=== PATIENT | female | born 1945 | race Caucasian/White ===

== ENCOUNTER 2020-04-28 10:18 | Outpatient (REF) | payer MEDICARE, SELFPAY ==
--- NOTE | 2020-04-28 | US_ITS ---
EXAMINATION: US EXTRACRANIAL CAROTID DUPLEX, BILATERAL CLINICAL INFORMATION: Bilateral carotid artery stenosis. COMPARISON: Carotid ultrasound on March 20, 2019 TECHNIQUE: Real-time ultrasound and Doppler techniques (integrating B-mode 2-D vascular images, Doppler spectral analysis and color-flow Doppler imaging) were utilized to interrogate the extracranial carotid arteries, the vertebral arteries and proximal subclavian arteries bilaterally. The degree of stenosis is determined by criteria similar to NASCET. FINDINGS: Right Side: 1. There is moderate atherosclerotic plaque seen in the bifurcation/proximal ICA region. 2. The common carotid artery PSV proximally is 80.3 cm/s and distally 80.9 cm/s. 3. The proximal internal carotid artery velocities are 212 cm/s systolic and 30.1 cm/s diastolic. 4. The proximal external carotid artery PSV is 1:30 cm/s. 5. The vertebral artery shows antegrade flow. 6. The subclavian artery waveforms are normal. Left Side: 1. There is moderate atherosclerotic plaque seen in the bifurcation/proximal ICA region. 2. The common carotid artery PSV proximally is 99.7 cm/s and distally 71.1 cm/s. 3. The proximal internal carotid artery velocities are 163 cm/s systolic and 36.3 cm/s diastolic. 4. The proximal external carotid artery PSV is 160 cm/s. 5. The vertebral artery shows antegrade flow. 6. The subclavian artery waveforms are normal. US/US carotid duplex BI IMPRESSION: 1. RIGHT: Moderate, hemodynamically significant stenosis of the proximal right internal carotid artery corresponding to a 50-79% stenosis by velocity criteria. 2. LEFT: Moderate, hemodynamically significant stenosis of the proximal left internal carotid artery corresponding to a 50-79% stenosis by velocity criteria.
== END 2020-04-28 10:19 | disposition home or self-care (01) ==
LOC: HO.HMGCX 10:18
PROVIDERS: PCP Nurse Practitioner Family; Visit Provider Psychiatry & Neurology Neurology
DX: I65.23 Occlusion and stenosis of bilateral carotid arteries (principal)
CPT/HCPCS: 93880

== ENCOUNTER 2020-06-06 09:16 | Day surgery (SDC) | payer MEDICARE, SELFPAY ==
--- NOTE | 2020-05-24 13:27 | MHC.SHP ---
Pre-Procedural Eval Section A The patient is an INPATIENT: No The History & Physical has been completed within 30 days and I have reviewed it.: Yes Section B Chief Complaint: Cataract Right Eye Allergies: Allergies Allergy/AdvReac Type Severity Reaction Status Date / Time No Known Allergies Allergy Unverified 03/24/20 15:35 Plan Diagnosis/Plan: Unchanged Patient has been examined and remains a candidate for the planned procedure
--- NOTE | 2020-05-30 14:35 | P.CONAN_ITS ---
Documented by User: Ana Brannon 06/01/20 08:32 HPI - Anesthesia Eval Consult details Narrative: 74yo F for Cataract Extraction IOL Insertion No prev cataract PMFSH Past Medical History Medical History Arthritis Cancer Elevated cholesterol Hiatal hernia HTN (hypertension) TIA (transient ischemic attack) Surgical History Surgical History H/O colonoscopy Hx of appendectomy Hx of knee surgery Hx of tonsillectomy Hx of tracheostomy Social History Social History Smoking Status: Never smoker Use of substances other than those prescribed or required for medical reasons: No Have you been hit, kicked, punched, or otherwise hurt by someone within the past year? If so, by whom?: No Advance Directives Information Provided: No Recently lost weight without trying: No Meds Allergies Allergy/AdvReac Type Severity Reaction Status Date / Time No Known Allergies Allergy Verified 05/31/20 10:27 Home Medications Medication Instructions Recorded Confirmed Type aspirin [Aspirin Low-Strength] 81 mg PO DAILY 05/31/20 05/31/20 History coenzyme Q10 [CoQ-10] 100 mg PO DAILY 05/31/20 05/31/20 History lisinopril 1.5 tab PO DAILY 05/31/20 05/31/20 History mesalamine 4 tab PO DAILY 05/31/20 05/31/20 History multivitamin 1 tab PO DAILY 05/31/20 05/31/20 History rosuvastatin 1 tab PO DAILY 05/31/20 05/31/20 History vit C,H-Ke-stdxg-lutein-zeaxan 1 tab PO DAILY 05/31/20 05/31/20 History [PreserVision AREDS-2] Exam Exam Date and Time: May 30, 2020 2605 Assessment and Plan Assessment Anesthesia Assessment: Chart Reviewed Documented by User: Opal Ayala 06/06/20 10:07 FORMERLY [facility], [facility] Past Medical History Medical History Arthritis Cancer Elevated cholesterol Hiatal hernia HTN (hypertension) TIA (transient ischemic attack) Surgical History Surgical History H/O colonoscopy Hx of appendectomy Hx of knee surgery Hx of tonsillectomy Hx of tracheostomy Social History Social History Smoking Status: Never smoker Use of substances other than those prescribed or required for medical reasons: No Have you been hit, kicked, punched, or otherwise hurt by someone within the past year? If so, by whom?: No Advance Directives Information Provided: No Recently lost weight without trying: No Meds Allergies Allergy/AdvReac Type Severity Reaction Status Date / Time No Known Allergies Allergy Verified 05/31/20 10:27 Home Medications Medication Instructions Recorded Confirmed Type aspirin [Aspirin Low-Strength] 81 mg PO DAILY 05/31/20 05/31/20 History coenzyme Q10 [CoQ-10] 100 mg PO DAILY 05/31/20 05/31/20 History lisinopril 1.5 tab PO DAILY 05/31/20 05/31/20 History mesalamine 4 tab PO DAILY 05/31/20 05/31/20 History multivitamin 1 tab PO DAILY 05/31/20 05/31/20 History rosuvastatin 1 tab PO DAILY 05/31/20 05/31/20 History vit C,V-Ww-lughe-lutein-zeaxan 1 tab PO DAILY 05/31/20 05/31/20 History [PreserVision AREDS-2] Exam Airway Mallampati Class: II (Caps front top and bottom) TM Dist: >3cm Heart: RRR Lungs: CTA BL Assessment and Plan Assessment Anesthesia Assessment: Anesthesia Plan Discussed Final Anesthetic Review NPO: Yes ASA Class: II Final Preanesthetic Review: Meds/Allgs Chart Reviewed and Consent Obtained/Revie wed Patient Risk: Low Procedure Risk: Low Anesthetic Plan Anesthetic Plan: MAC: Disposition: Standard PACU
[2020-05-31 10:20] VITALS: BMI 30.8
[2020-06-06 10:35] VITALS: BP 147/72; PULSE 93; RESP 16; TEMP 36.1; O2SAT 97
[2020-06-06] MEDS: Lactated Ringers 500 ML 50 ML IV (10:35)
--- NOTE | 2020-06-06 11:42 | HO.PNOPHT ---
Ophthalmology Procedure Procedure Date of Service: 06/06/20 Ophthalmology Viscoelastic: Healon Duet Dual Pack Pro Ophthalmology Lenses: TECNIS [id number] (20.5) Procedure Notes: PREOPERATIVE DIAGNOSIS: Decreased visual acuity right eye secondary to cataract POSTOPERATIVE DIAGNOSIS: Same PROCEDURE: Right cataract extraction with intraocular lens insertion SURGEON: Gianni White M.D. ANESTHESIA: Topical/MAC ESTIMATED BLOOD LOSS: None COMPLICATIONS: None After obtaining informed consent, the patient was brought to the operating room suite and placed in the supine position. After adequate sedation per anesthesia, topical drops of Tetracaine were given to the right eye. The eye was then prepped and draped in the usual sterile fashion. The operating room microscope was then positioned over the operative eye and a lid speculum placed. A paracentesis was created. Viscoelastic was then instilled into the anterior chamber. A three plane incision was then created temporally, utilizing a 2.85 mm keratome. Capsulotomy forceps were then utilized to create a circular tear capsulotomy. Hydrodissection and hydrodelineation were carried out until adequate mobilization of the nucleus occurred. Phacoemulsification was then utilized to remove the dense central nucleus followed by removal of the cortical material utilizing the automated aspiration irrigation unit. Viscoelastic was instilled into the posterior capsular bag followed by placement of a posterior chamber intraocular lens without difficulty. The residual Viscoelastic was then removed utilizing the automated IA machine. The wound was checked and found to be watertight. The patient tolerated the procedure well and the lid speculum was removed. Intracameral injection of Vigamox 0.1 mL followed by a subtenon injection of Kenalog-40 0.2 mL were administered. The patient will be seen in the a.m.
[2020-06-06 11:43] VITALS: BP 141/76; PULSE 82; RESP 18; TEMP 36.2; O2SAT 100
== END 2020-06-06 12:05 | disposition home or self-care (01) ==
PROVIDERS: PCP Nurse Practitioner Family; Visit Provider Ophthalmology
PROC: (CPT 66985; principal; 2020-06-06 12:00)
DX: H25.11 Age-related nuclear cataract, right eye (principal); H54.7 Unspecified visual loss; Z83.511 Family history of glaucoma; I10 Essential (primary) hypertension; D03.9 Melanoma in situ, unspecified; E78.00 Pure hypercholesterolemia, unspecified; Z86.73 Personal history of transient ischemic attack (TIA), and cerebral infarction without residual deficits; Z79.82 Long term (current) use of aspirin; Z79.899 Other long term (current) drug therapy
CPT/HCPCS: 66984; J2250; J3010; J3300; V2632

== ENCOUNTER 2020-06-20 08:21 | Day surgery (SDC) | payer MEDICARE, SELFPAY ==
[2020-05-31 10:32] VITALS: BMI 30.8
--- NOTE | 2020-06-16 08:38 | MHC.SHP ---
Pre-Procedural Eval Section A The patient is an INPATIENT: No The History & Physical has been completed within 30 days and I have reviewed it.: Yes Section B Chief Complaint: Cataract Left Eye Allergies: Allergies Allergy/AdvReac Type Severity Reaction Status Date / Time No Known Allergies Allergy Verified 06/06/20 10:38 Plan Diagnosis/Plan: Unchanged Patient has been examined and remains a candidate for the planned procedure
--- NOTE | 2020-06-17 11:22 | HO.ANESPROP2 ---
Documented by User: Ana Brannon 06/17/20 11:23 HPI - Anesthesia Eval Consult details Narrative: 74yo F for Cataract Extraction PCP cleared [facility] 06/06/20; Fent 25, Midaz 2 PMFSH Past Medical History Medical History Arthritis Cancer Elevated cholesterol Hiatal hernia HTN (hypertension) TIA (transient ischemic attack) Surgical History Surgical History H/O colonoscopy Hx of appendectomy Hx of knee surgery Hx of tonsillectomy Hx of tracheostomy Social History Social History Smoking Status: Never smoker Use of substances other than those prescribed or required for medical reasons: No Have you been hit, kicked, punched, or otherwise hurt by someone within the past year? If so, by whom?: No Advance Directives Information Provided: No Recently lost weight without trying: No Meds Allergies Allergy/AdvReac Type Severity Reaction Status Date / Time No Known Allergies Allergy Verified 06/06/20 10:38 Home Medications Medication Instructions Recorded Confirmed Type aspirin [Aspirin Low-Strength] 81 mg PO DAILY 05/31/20 05/31/20 History coenzyme Q10 [CoQ-10] 100 mg PO DAILY 05/31/20 05/31/20 History lisinopril 1.5 tab PO DAILY 05/31/20 05/31/20 History mesalamine 4 tab PO DAILY 05/31/20 05/31/20 History multivitamin 1 tab PO DAILY 05/31/20 05/31/20 History rosuvastatin 1 tab PO DAILY 05/31/20 05/31/20 History vit C,G-Wo-jevqu-lutein-zeaxan 1 tab PO DAILY 05/31/20 05/31/20 History [PreserVision AREDS-2] Exam Exam Date and Time: June 17, 2020 1122 Height,Weight and Vital Signs: Height 5 ft 7.5 in Weight 90.718 kg Assessment and Plan Assessment Anesthesia Assessment: Chart Reviewed Documented by User: Regina Tinsley 06/20/20 09:51 PMFSH Past Medical History Medical History Arthritis Cancer Elevated cholesterol Hiatal hernia HTN (hypertension) TIA (transient ischemic attack) Surgical History Surgical History H/O colonoscopy Hx of appendectomy Hx of knee surgery Hx of tonsillectomy Hx of tracheostomy Social History Social History Smoking Status: Never smoker Use of substances other than those prescribed or required for medical reasons: No Have you been hit, kicked, punched, or otherwise hurt by someone within the past year? If so, by whom?: No Advance Directives Information Provided: No Recently lost weight without trying: No Meds Allergies Allergy/AdvReac Type Severity Reaction Status Date / Time No Known Allergies Allergy Verified 06/06/20 10:38 Home Medications Medication Instructions Recorded Confirmed Type aspirin [Aspirin Low-Strength] 81 mg PO DAILY 05/31/20 05/31/20 History coenzyme Q10 [CoQ-10] 100 mg PO DAILY 05/31/20 05/31/20 History lisinopril 1.5 tab PO DAILY 05/31/20 05/31/20 History mesalamine 4 tab PO DAILY 05/31/20 05/31/20 History multivitamin 1 tab PO DAILY 05/31/20 05/31/20 History rosuvastatin 1 tab PO DAILY 05/31/20 05/31/20 History vit C,T-Sp-hunnb-lutein-zeaxan 1 tab PO DAILY 05/31/20 05/31/20 History [PreserVision AREDS-2] Exam Airway Mallampati Class: I TM Dist: >3cm Neck ROM: Full Loose/Missing/Broken Teeth: No Heart: RRR Lungs: CTA Assessment and Plan Assessment Anesthesia Assessment: Anesthesia Plan Discussed and Chart Reviewed Final Anesthetic Review NPO: Yes ASA Class: II Final Preanesthetic Review: Meds/Allgs Chart Reviewed, Consent Obtained/Reviewed and Anes Risks/Benef Reviewed Patient Risk: Intermediate Procedure Risk: Low Anesthetic Plan Anesthetic Plan: MAC: Disposition: Standard PACU
[2020-06-20 09:43] VITALS: BP 130/73; PULSE 86; RESP 16; TEMP 36.9; O2SAT 95
[2020-06-20] MEDS: Tetracaine HCl/PF 0.5% Oph Sol 4 ML DROPS 1 DROP EYE-LEFT (09:55)
[2020-06-20] MEDS: Tropicamide 1 % Ophth Sol 3 ML BTL 1 DROP EYE-LEFT ×3 (09:57→10:04)
[2020-06-20] MEDS: Phenylephrine HCL 2.5% Oph SoL 2 ML BOTTLE 1 DROP EYE-LEFT ×3 (09:58→10:07)
[2020-06-20 10:45] VITALS: BP 113/68; PULSE 82; RESP 18; TEMP 36.9; O2SAT 97
--- NOTE | 2020-06-20 10:45 | HO.PNOPHT ---
Ophthalmology Procedure Procedure Date of Service: 06/20/20 Ophthalmology Viscoelastic: Healon Duet Dual Pack Pro Ophthalmology Lenses: TECNIS [id number] (20.5) Procedure Notes: PREOPERATIVE DIAGNOSIS: Decreased visual acuity left eye secondary to cataract POSTOPERATIVE DIAGNOSIS: Same PROCEDURE: Left cataract extraction with intraocular lens insertion SURGEON: Gianni White M.D. ANESTHESIA: Topical/MAC ESTIMATED BLOOD LOSS: None COMPLICATIONS: None After obtaining informed consent, the patient was brought to the operation room suite and placed in the supine position. After adequate sedation per anesthesia, topical drops of Tetracaine were given to the left eye. The eye was then prepped and draped in the usual sterile fashion. The operating room microscope was then positioned over the operative eye and a lid speculum placed. A paracentesis was created. Viscoelastic was then instilled into the anterior chamber. A three plane incision was then created temporally, utilizing a 2.85 mm keratome. Capsulotomy forceps were then utilized to create a circular tear capsulotomy. Hydrodissection and hydrodelineation were carried out until adequate mobilization of the nucleus occurred. Phacoemulsification was then utilized to remove the dense central nucleus followed by removal of the cortical material utilizing the automated aspiration irrigation unit. Viscoat elastic was instilled into the posterior capsular bag followed by placement of a posterior chamber intraocular lens without difficulty. The residual Viscoat elastic was then removed utilizing the automated IA machine. The wound was check and found to be watertight. The patient tolerated the procedure well and the lid speculum was removed. Intracameral injection of Vigamox 0.1 mL followed by a subtenon injection of Kenalog-40 0.2 mL were administered. The patient will be seen in the a.m.
--- NOTE | 2020-06-20 10:48 | HO.POSTANES ---
Post Anesthesia Evaluation Post Anesthesia Evaluation Vital Signs: Vital Signs Temp Pulse Resp BP Pulse Ox 06/20/20 09:43 98.5 F 86 16 130/73 95 Anesthesia: Monitored Mental Status: Awake Pain Control: Satisfactory Nausea/Vomiting: None Hydration: Adequate Anesthesia-Related Issues: No Anes. Related Issues
== END 2020-06-20 11:15 | disposition home or self-care (01) ==
PROVIDERS: PCP Nurse Practitioner Family; Visit Provider Ophthalmology
PROC: (CPT 66985; principal; 2020-06-20 10:30)
DX: H25.12 Age-related nuclear cataract, left eye (principal); I10 Essential (primary) hypertension; Z79.899 Other long term (current) drug therapy
CPT/HCPCS: 66984; J2250; J3010; J3300; V2632

== ENCOUNTER 2021-02-15 11:39 | Outpatient (REF) | payer MEDICARE, SELFPAY ==
--- NOTE | ~2021-02-15 | MM_ITS ---
EXAMINATION: MM SCREENING DIGITAL BREAST TOMOSYNTHESIS, BILATERAL CLINICAL INFORMATION: Screening. Asymptomatic. The lifetime risk of breast cancer based on the Tyrer-Cuzick Model is 7.6%. COMPARISON: Mammography: February 10, 2020 and studies dating back to November 13, 2011 TECHNIQUE: Digital breast tomosynthesis is performed in both the craniocaudal and mediolateral oblique views along with computer-aided detection (CAD). Synthesized 2D images are generated from the tomosynthesis. FINDINGS: The breasts are heterogeneously dense, which may obscure small masses (ACR BI-RADS breast composition Category c). There are no significant masses, abnormal calcifications, or other abnormalities. Stable region of architectural distortion seen anterior aspect of the left breast. MM/MM tomosynthesis screening BI IMPRESSION: There are no significant changes from prior study. ASSESSMENT: BI-RADS 2: Benign RECOMMENDATION: Routine annual mammography screening. This patient's information was entered into a reminder system with a target due date for their next mammogram.
== END 2021-02-15 11:40 | disposition home or self-care (01) ==
LOC: HO.MAMMO 11:39
PROVIDERS: PCP Nurse Practitioner Family; Visit Provider Nurse Practitioner Adult Health
DX: Z12.31 Encounter for screening mammogram for malignant neoplasm of breast (principal)
CPT/HCPCS: 77063; 77067

== ENCOUNTER 2021-05-22 10:13 | Outpatient (REF) | payer MEDICARE, SELFPAY ==
--- NOTE | ~2021-05-22 | US_ITS ---
EXAMINATION: US EXTRACRANIAL CAROTID DUPLEX, BILATERAL CLINICAL INFORMATION: This is a 75-year-old female with carotid stenosis. COMPARISON: Comparison is made to a previous study dated 04/28/2020 which demonstrated bilateral 50-79% internal carotid artery stenoses. TECHNIQUE: Real-time ultrasound and Doppler techniques (integrating B-mode 2-D vascular images, Doppler spectral analysis and color-flow Doppler imaging) were utilized to interrogate the extracranial carotid arteries, the vertebral arteries and proximal subclavian arteries bilaterally. The degree of stenosis is determined by criteria similar to NASCET. FINDINGS: Right Side: 1. There is moderate atherosclerotic plaque seen in the bifurcation/proximal ICA region. 2. The common carotid artery PSV proximally is 68 cm/s and distally 70 cm/s. 3. The proximal internal carotid artery velocities are 183 cm/s systolic and 31 cm/s diastolic. 4. The proximal external carotid artery PSV is 194 cm/s. 5. The vertebral artery shows antegrade flow. 6. The subclavian artery waveforms are normal. Left Side: 1. There is moderate atherosclerotic plaque seen in the bifurcation/proximal ICA region. 2. The common carotid artery PSV proximally is 99 cm/s and distally 81 cm/s. 3. The proximal internal carotid artery velocities are 176 cm/s systolic and 37 cm/s diastolic. 4. The proximal external carotid artery PSV is 147 cm/s. 5. The vertebral artery shows antegrade flow. 6. The subclavian artery waveforms are normal. US/US carotid duplex BI IMPRESSION: 1. RIGHT: Moderate, hemodynamically significant stenosis of the proximal right internal carotid artery corresponding to a 50-79% stenosis by velocity criteria. 2. LEFT: Moderate, hemodynamically significant stenosis of the proximal left internal carotid artery corresponding to a 50-79% stenosis by velocity criteria. 3. There is no change in the category severity of disease when compared to the previous study dated 04/28/2020.
== END 2021-05-22 10:14 | disposition home or self-care (01) ==
LOC: HO.HMGCX 10:13
PROVIDERS: PCP Nurse Practitioner Family; Visit Provider Psychiatry & Neurology Neurology
DX: I65.23 Occlusion and stenosis of bilateral carotid arteries (principal)
CPT/HCPCS: 93880

== ENCOUNTER 2022-02-19 11:34 | Outpatient (REF) | payer MEDICARE, SELFPAY ==
--- NOTE | ~2022-02-19 | MM_ITS ---
EXAMINATION: MM SCREENING DIGITAL BREAST TOMOSYNTHESIS, BILATERAL CLINICAL INFORMATION: Screening. Asymptomatic. The lifetime risk of breast cancer based on the Tyrer-Cuzick Model is 7%. COMPARISON: Mammography: 02/15/2021, 02/10/2020, 05/12/2018 TECHNIQUE: Digital breast tomosynthesis is performed in both the craniocaudal and mediolateral oblique views along with computer-aided detection (CAD). Synthesized 2D images are generated from the tomosynthesis. Additional bilateral CC views are provided. FINDINGS: The breasts are heterogeneously dense, which may obscure small masses (ACR BI-RADS breast composition Category c). There are no significant masses, abnormal calcifications, or other abnormalities. Parenchymal pattern is similar to prior studies. There is no developing density or architectural abnormality. The axilla and skin contours are unremarkable. No significant changes. MM/MM tomosynthesis screening BI IMPRESSION: No mammographic evidence of malignancy. ASSESSMENT: BI-RADS 1: Negative RECOMMENDATION: Routine annual mammography screening. This patient's information was entered into a reminder system with a target due date for their next mammogram.
== END 2022-02-19 11:35 | disposition home or self-care (01) ==
LOC: HO.MAMMO 11:34
PROVIDERS: PCP Nurse Practitioner Family; Visit Provider Nurse Practitioner Family
DX: Z12.31 Encounter for screening mammogram for malignant neoplasm of breast (principal)
CPT/HCPCS: 77063; 77067

== ENCOUNTER 2022-06-04 14:16 | Outpatient (REF) | payer MEDICARE, SELFPAY ==
--- NOTE | ~2022-06-04 | US_ITS ---
EXAMINATION: US EXTRACRANIAL CAROTID DUPLEX, BILATERAL CLINICAL INFORMATION: Stenosis, bruit, hypertension, hyperlipidemia COMPARISON: Carotid duplex on 05/22/2021 TECHNIQUE: Real-time ultrasound and Doppler techniques (integrating B-mode 2-D vascular images, Doppler spectral analysis and color-flow Doppler imaging) were utilized to interrogate the extracranial carotid arteries, the vertebral arteries and proximal subclavian arteries bilaterally. The degree of stenosis is determined by criteria similar to NASCET. FINDINGS: Right Side: 1. There is moderate atherosclerotic plaque seen in the bifurcation/proximal ICA region. 2. The common carotid artery PSV proximally is 76 cm/s and distally 67 cm/s. 3. The proximal internal carotid artery velocities are 248 cm/s systolic and 42 cm/s diastolic. 4. The proximal external carotid artery PSV is 224 cm/s. 5. The vertebral artery shows antegrade flow. 6. The subclavian artery waveforms are normal. Left Side: 1. There is moderate atherosclerotic plaque seen in the bifurcation/proximal ICA region. 2. The common carotid artery PSV proximally is 76 cm/s and distally 68 cm/s. 3. The proximal internal carotid artery velocities are 174 cm/s systolic and 43 cm/s diastolic. 4. The proximal external carotid artery PSV is 116 cm/s. 5. The vertebral artery shows antegrade flow. 6. The subclavian artery waveforms are normal. US/US carotid duplex BI IMPRESSION: 1. RIGHT: Moderate, hemodynamically significant stenosis of the proximal right internal carotid artery corresponding to a 50-79% stenosis by velocity criteria. 2. LEFT: Moderate, hemodynamically significant stenosis of the proximal left internal carotid artery corresponding to a 50-79% stenosis by velocity criteria. 3. There is no change in the category severity of disease when compared to the previous study dated 05/22/2021. 4. Elevated velocities in the right external carotid artery suggesting stenosis.
== END 2022-06-04 14:17 | disposition home or self-care (01) ==
LOC: HO.HMGCX 14:16
PROVIDERS: PCP Nurse Practitioner Family; Visit Provider Psychiatry & Neurology Neurology
DX: I65.23 Occlusion and stenosis of bilateral carotid arteries (principal)
CPT/HCPCS: 93880

== ENCOUNTER 2022-07-17 17:18 | Outpatient (REF) | payer MEDICARE, SELFPAY ==
--- NOTE | ~2022-07-17 | XR_ITS ---
EXAMINATION: XR KNEES, STANDING AP BILATERAL XR KNEE, RIGHT XR KNEE, LEFT CLINICAL INFORMATION: Knee pain COMPARISON: Right knee radiographs 04/04/2017 TECHNIQUE: Bilateral standing AP view of the knees is performed. Each knee is also imaged in lateral and axial patella views. FINDINGS: Right: There is mild narrowing medial and lateral knee joint compartments with chondrocalcinosis menisci, greater lateral side. No visible erosive change. There is lateral spurring of the patella. No patellar lateralization or tilting. There is a small to moderate suprapatellar effusion. Hoffa's fat pad appears normal. Left: There is borderline narrowing lateral knee joint compartment. No erosive change. Meniscal chondrocalcinosis is present medial and lateral sides. Mild lateral spurring patella. No patellar lateralization or tilting. There is small to moderate suprapatellar effusion. Hoffa's fat pad appears normal. XR/XR knee RT 2V IMPRESSION: Right: -Mild narrowing medial and lateral knee joint compartments with chondrocalcinosis menisci. -Small to moderate suprapatellar effusion. No erosive change. Left: -Borderline narrowing lateral knee joint compartment. Meniscal chondrocalcinosis. -Small to moderate suprapatellar effusion.
--- NOTE | ~2022-07-17 | XR_ITS ---
EXAMINATION: XR KNEES, STANDING AP BILATERAL XR KNEE, RIGHT XR KNEE, LEFT CLINICAL INFORMATION: Knee pain COMPARISON: Right knee radiographs 04/04/2017 TECHNIQUE: Bilateral standing AP view of the knees is performed. Each knee is also imaged in lateral and axial patella views. FINDINGS: Right: There is mild narrowing medial and lateral knee joint compartments with chondrocalcinosis menisci, greater lateral side. No visible erosive change. There is lateral spurring of the patella. No patellar lateralization or tilting. There is a small to moderate suprapatellar effusion. Hoffa's fat pad appears normal. Left: There is borderline narrowing lateral knee joint compartment. No erosive change. Meniscal chondrocalcinosis is present medial and lateral sides. Mild lateral spurring patella. No patellar lateralization or tilting. There is small to moderate suprapatellar effusion. Hoffa's fat pad appears normal. XR/XR knee standing BI IMPRESSION: Right: -Mild narrowing medial and lateral knee joint compartments with chondrocalcinosis menisci. -Small to moderate suprapatellar effusion. No erosive change. Left: -Borderline narrowing lateral knee joint compartment. Meniscal chondrocalcinosis. -Small to moderate suprapatellar effusion.
--- NOTE | ~2022-07-17 | XR_ITS ---
EXAMINATION: XR KNEES, STANDING AP BILATERAL XR KNEE, RIGHT XR KNEE, LEFT CLINICAL INFORMATION: Knee pain COMPARISON: Right knee radiographs 04/04/2017 TECHNIQUE: Bilateral standing AP view of the knees is performed. Each knee is also imaged in lateral and axial patella views. FINDINGS: Right: There is mild narrowing medial and lateral knee joint compartments with chondrocalcinosis menisci, greater lateral side. No visible erosive change. There is lateral spurring of the patella. No patellar lateralization or tilting. There is a small to moderate suprapatellar effusion. Hoffa's fat pad appears normal. Left: There is borderline narrowing lateral knee joint compartment. No erosive change. Meniscal chondrocalcinosis is present medial and lateral sides. Mild lateral spurring patella. No patellar lateralization or tilting. There is small to moderate suprapatellar effusion. Hoffa's fat pad appears normal. XR/XR knee LT 2V IMPRESSION: Right: -Mild narrowing medial and lateral knee joint compartments with chondrocalcinosis menisci. -Small to moderate suprapatellar effusion. No erosive change. Left: -Borderline narrowing lateral knee joint compartment. Meniscal chondrocalcinosis. -Small to moderate suprapatellar effusion.
[2022-08-10 17:46] VITALS: PULSE 113; O2SAT 94
== END 2022-07-17 17:19 | disposition home or self-care (01) ==
LOC: HO.HOSX 17:18
PROVIDERS: Visit Provider Physician Assistant
DX: M17.11 Unilateral primary osteoarthritis, right knee (principal); M25.562 Pain in left knee
CPT/HCPCS: 20610; 73560; 73565; 99202; J1040

== ENCOUNTER 2023-03-14 11:51 | Outpatient (REF) | payer MEDICARE, SELFPAY ==
--- NOTE | ~2023-03-14 | MM_ITS ---
EXAMINATION: MM SCREENING DIGITAL BREAST TOMOSYNTHESIS, BILATERAL CLINICAL INFORMATION: Screening. Asymptomatic. COMPARISON: Mammography: 02/19/2022, 02/15/2021, 02/10/2020, 05/12/2018 TECHNIQUE: Digital breast tomosynthesis is performed in both the craniocaudal and mediolateral oblique views along with computer-aided detection (CAD). Synthesized 2D images are generated from the tomosynthesis. Bilateral CC nipple in profile views were also included. FINDINGS: The breasts are heterogeneously dense, which may obscure small masses (ACR BI-RADS breast composition Category c). There are no suspicious masses, suspicious grouped calcifications, or areas of architectural distortion. The parenchymal pattern is stable from prior exams. There are no skin changes. MM/MM tomosynthesis screening BI IMPRESSION: No mammographic evidence of malignancy. ASSESSMENT: BI-RADS BI-RADS 1 - Negative RECOMMENDATION: Routine annual mammography screening. 1 year F/U This examination should not preclude the clinical evaluation of a suspicious palpable abnormality. This patient's information was entered into a reminder system with a target due date for their next mammogram.
== END 2023-03-14 11:52 | disposition home or self-care (01) ==
LOC: HO.MAMMO 11:51
PROVIDERS: Visit Provider Nurse Practitioner Family
DX: Z12.31 Encounter for screening mammogram for malignant neoplasm of breast (principal)
CPT/HCPCS: 77063; 77067

== ENCOUNTER → 2023-03-14 12:15 | Outpatient (BNV) | payer MEDICARE, SELFPAY | PROVIDERS: Visit Provider Radiology Diagnostic Radiology | DX: Z12.31 Encounter for screening mammogram for malignant neoplasm of breast (principal) | CPT/HCPCS: 77063; 77067 ==

== ENCOUNTER 2023-06-04 10:17 | Outpatient (REF) | payer MEDICARE, SELFPAY ==
--- NOTE | ~2023-06-04 | US_ITS ---
EXAMINATION: US EXTRACRANIAL CAROTID DUPLEX, BILATERAL CLINICAL INFORMATION: Carotid stenosis. COMPARISON: Multiple priors most recently 06/04/2022. TECHNIQUE: Real-time ultrasound and Doppler techniques (integrating B-mode 2-D vascular images, Doppler spectral analysis and color-flow Doppler imaging) were utilized to interrogate the extracranial carotid arteries, the vertebral arteries and proximal subclavian arteries bilaterally. The degree of stenosis is determined by criteria similar to NASCET. FINDINGS: RIGHT SIDE: 1. There is marked atherosclerotic plaque seen in the bifurcation/proximal ICA region. 2. The common carotid artery PSV proximally is 127 cm/s and distally 75 cm/s. 3. The proximal internal carotid artery velocities are 175 cm/s systolic and 17 cm/s diastolic. 4. The proximal external carotid artery PSV is 185 cm/s. 5. The vertebral artery shows antegrade flow. 6. The subclavian artery waveforms are normal. LEFT SIDE: 1. There is moderate atherosclerotic plaque seen in the bifurcation/proximal ICA region. 2. The common carotid artery PSV proximally is 112 cm/s and distally 69 cm/s. 3. The proximal internal carotid artery velocities are 153 cm/s systolic and 34 cm/s diastolic. 4. The proximal external carotid artery PSV is 101 cm/s. 5. The vertebral artery shows antegrade flow. 6. The subclavian artery waveforms are normal. US/US carotid duplex BI IMPRESSION: 1. Right: Moderate, hemodynamically significant stenosis of the proximal right internal carotid artery corresponding to a 50-79% stenosis by velocity criteria. 2. Left: Moderate, hemodynamically significant stenosis of the proximal left internal carotid artery corresponding to a 50-79% stenosis by velocity criteria. 3. There is no change in the category severity of disease when compared to the previous study dated 06/04/2022.
== END 2023-06-04 10:18 | disposition home or self-care (01) ==
LOC: HO.HMGCX 10:17
PROVIDERS: PCP Nurse Practitioner Adult Health; Visit Provider Psychiatry & Neurology Neurology
DX: I65.23 Occlusion and stenosis of bilateral carotid arteries (principal)
CPT/HCPCS: 93880

== ENCOUNTER 2023-06-28 06:13 | Day surgery (SDC) | payer MEDICARE, SELFPAY ==
[2023-06-26 15:06] VITALS: BMI 32.9
--- NOTE | 2023-06-27 09:41 | HO.ANESPROP2 ---
Documented by User: Ana Brannon NP 06/27/23 09:47 HPI - Anesthesia Eval Consult details Narrative: 77yo F for Colonoscopy PMFSH Active Problems Active Problems: All Active Problems (Updated 07/17/22 @ 10:45 by Dora Christianson) Osteoarthritis of right knee (Acute) Past Medical History Medical History (Updated 06/27/23 @ 09:47 by Ana Brannon NP) Carotid stenosis Cancer Arthritis Hiatal hernia TIA (transient ischemic attack) Elevated cholesterol HTN (hypertension) Surgical History Surgical History (Updated 06/26/23 @ 15:09 by Polly Espinosa RN) Hx of bilateral cataract extraction History of esophagogastroduodenoscopy (EGD) Hx of tracheostomy Hx of knee surgery Hx of appendectomy Hx of tonsillectomy H/O colonoscopy Social History Social History Patient Tobacco Use Status: Never used Tobacco Second Hand Smoke Exposure: No Use of substances other than those prescribed or required for medical reasons: No Are you DNR?: No Advance Directives: No Advance Directives Information Provided: Yes Advance Directives on File: No Meds Allergies Allergy/AdvReac Type Severity Reaction Status Date / Time No Known Allergies Allergy Verified 07/17/22 10:08 Home Medications Medication Instructions Recorded Confirmed Last Taken Type aspirin 81 mg tablet,delayed 81 mg PO DAILY 05/31/20 06/26/23 Unknown History release coenzyme Q10 100 mg capsule 100 mg PO DAILY 05/31/20 05/31/20 Unknown History (CoQ-10) lisinopril 5 mg tablet 1.5 tab PO DAILY 05/31/20 06/26/23 Unknown History mesalamine 1.2 gram tablet,delayed 4 tab PO DAILY 05/31/20 06/26/23 Unknown History release multivitamin 1 tab PO DAILY 05/31/20 06/26/23 Unknown History rosuvastatin 40 mg tablet 1 tab PO DAILY 05/31/20 06/26/23 Unknown History vit C 250 mg-vit E 90 mg-zinc 40 1 tab PO DAILY 05/31/20 05/31/20 Unknown History mg-copper 1 [id number] capsule (PreserVision AREDS-2) Exam Height,Weight and Vital Signs: Height 5 ft 7 in Weight 95.254 kg Narrative Narrative: US carotid duplex BI 05/2023 IMPRESSION: 1. Right: Moderate, hemodynamically significant stenosis of the proximal right internal carotid artery corresponding to a 50-79% stenosis by velocity criteria. 2. Left: Moderate, hemodynamically significant stenosis of the proximal left internal carotid artery corresponding to a 50-79% stenosis by velocity criteria. 3. There is no change in the category severity of disease when compared to the previous study dated 06/04/2022. Assessment and Plan Assessment Anesthesia Assessment: Chart Reviewed Documented by User: Keisha Muhammad MD 06/28/23 08:31 COUNTS INCLUDE 234 BEDS AT THE [facility] Active Problems Active Problems: All Active Problems (Updated 06/28/23 @ 07:20 by Keisha Muhammad MD) Osteoarthritis of right knee (Acute) H/o TIA 2018. Followed by Dr Corea. Has annual carotid dopplers. No changes in degree of stenosis. No symptoms since Past Medical History Medical History (Updated 06/27/23 @ 09:47 by Ana Brannon NP) Carotid stenosis Cancer Arthritis Hiatal hernia TIA (transient ischemic attack) Elevated cholesterol HTN (hypertension) Family History Family history of problems with anesthesia: No Surgical History Surgical History (Updated 06/26/23 @ 15:09 by Polly Espinosa RN) Hx of bilateral cataract extraction History of esophagogastroduodenoscopy (EGD) Hx of tracheostomy Hx of knee surgery Hx of appendectomy Hx of tonsillectomy H/O colonoscopy History of Problems with Anesthesia: No Social History Social History Patient Tobacco Use Status: Never used Tobacco Second Hand Smoke Exposure: No Use of substances other than those prescribed or required for medical reasons: No Are you DNR?: No Advance Directives: No Advance Directives Information Provided: Yes Advance Directives on File: No Meds Allergies Allergy/AdvReac Type Severity Reaction Status Date / Time No Known Allergies Allergy Verified 07/17/22 10:08 Home Medications Medication Instructions Recorded Confirmed Last Taken Type aspirin 81 mg tablet,delayed 81 mg PO DAILY 11/24/20 12/20/23 Unknown History release coenzyme Q10 100 mg capsule 100 mg PO DAILY 05/31/20 05/31/20 Unknown History (CoQ-10) lisinopril 5 mg tablet 1.5 tab PO DAILY 05/31/20 06/26/23 Unknown History mesalamine 1.2 gram tablet,delayed 4 tab PO DAILY 05/31/20 06/26/23 Unknown History release multivitamin 1 tab PO DAILY 05/31/20 06/26/23 Unknown History rosuvastatin 40 mg tablet 1 tab PO DAILY 05/31/20 06/26/23 Unknown History vit C 250 mg-vit E 90 mg-zinc 40 1 tab PO DAILY 05/31/20 05/31/20 Unknown History mg-copper 1 [id number] capsule (PreserVision AREDS-2) Exam Height,Weight and Vital Signs: Height 5 ft 7 in Weight 95.254 kg Vital Signs Temp Pulse Resp BP Pulse Ox O2 Del Method 06/28/23 06:49 98.1 F 85 16 135/75 98 Room Air Airway Mallampati Class: II TM Dist: >3cm Neck ROM: Full Loose/Missing/Broken Teeth: No (Caps front intact. Denies broken, loose, missing teeth) Heart: RRR Lungs: CTAB Assessment and Plan Assessment Anesthesia Assessment: Anesthesia Plan Discussed Final Anesthetic Review Family History of Problems with Anesthesia: No History of Problems with Anesthesia: No NPO: Yes ASA Class: III Final Preanesthetic Review: No Changes in Pt Med Stat, Meds/Allgs Chart Reviewed, Consent Obtained/Reviewed and Anes Risks/Benef Reviewed Patient Risk: Intermediate Procedure Risk: Low Assessment/Block/Sedation in SS: Assess/Block/Sedation-SS Anesthetic Plan Anesthetic Plan: MAC: Disposition: Standard PACU
[2023-06-28 06:27] VITALS: BMI 35.0
[2023-06-28 06:49] VITALS: BP 135/75; PULSE 85; RESP 16; TEMP 36.7; O2SAT 98
[2023-06-28] MEDS: Lactated Ringers 1,000 ML 100 ML IVCONT (06:51)
[2023-06-28 08:00] VITALS: BP 116/62; PULSE 84; RESP 16; TEMP 36.2; O2SAT 97
[2023-06-28 08:15] VITALS: BP 117/55; PULSE 73; RESP 20; O2SAT 99
[2023-06-28] MEDS: levETIRAcetam in NaCl (iso-os) 1,000 MG/100 ML PIGGYBACK 400 MG IV (08:32)
[2023-06-28 08:39] VITALS: BP 124/54; PULSE 76; RESP 17; O2SAT 96
[2023-06-28 09:02] VITALS: BP 138/70; PULSE 77; RESP 17; O2SAT 97
--- NOTE | 2023-06-28 10:37 | PM.OP ---
Brief Operative Note Date of Service: 06/28/23 Pre-op diagnosis: Screening Post-op diagnosis: other (Diverticulosis) Procedure: Colonoscopy to the cecum and TI Surgeon: Larry Daley MD Anesthesia: MAC Was an Lithography Contact Worker used for this Procedure?: No Estimated blood loss (mL): 0 Pathology: none sent Condition: stable Disposition: PACU
== END 2023-06-28 11:19 | disposition home or self-care (01) ==
PROVIDERS: PCP Nurse Practitioner Adult Health; Visit Provider Internal Medicine
DX: Z12.11 Encounter for screening for malignant neoplasm of colon (principal); Z53.09 Procedure and treatment not carried out because of other contraindication; K57.30 Diverticulosis of large intestine without perforation or abscess without bleeding; I65.29 Occlusion and stenosis of unspecified carotid artery; E78.00 Pure hypercholesterolemia, unspecified; I10 Essential (primary) hypertension; Z79.82 Long term (current) use of aspirin; Z79.899 Other long term (current) drug therapy; Z86.73 Personal history of transient ischemic attack (TIA), and cerebral infarction without residual deficits; Z98.890 Other specified postprocedural states
CPT/HCPCS: J1953; J2250; J2704

== ENCOUNTER 2023-06-28 09:47 | Day surgery (SDC) | payer MEDICARE, SELFPAY ==
[2023-06-28 10:39] VITALS: BP 105/51; PULSE 89; RESP 16; TEMP 36.1; O2SAT 97
--- NOTE | 2023-06-28 10:52 | P.BOP_ITS ---
Brief Operative Note Date of Service: 06/28/23 Pre-op diagnosis: Screening Post-op diagnosis: other (Diverticulosis) Procedure: Colonoscopy to the cecum and TI Surgeon: Larry Daley MD Anesthesia: MAC Was an Professor Of Biblical Studies used for this Procedure?: No Estimated blood loss (mL): 0 Pathology: none sent Condition: stable Disposition: PACU
[2023-06-28 10:56] VITALS: BP 122/69; PULSE 76; RESP 18; TEMP 36.7; O2SAT 96
--- NOTE | 2023-06-28 11:22 | OP_ITS ---
DATE OF SERVICE: 06/28/2023 SURGEON: Larry Daley MD INDICATIONS: The patient presents for evaluation of colorectal cancer screening. Full consent has been obtained from her for this, including risks of bleeding and perforation. PREOPERATIVE DIAGNOSIS: Colorectal cancer screening and personal history of tubular adenoma of the colon. POSTOPERATIVE DIAGNOSIS: PROCEDURE PERFORMED: Colonoscopy to the cecum and terminal ileum. ESTIMATED BLOOD LOSS: COMPLICATIONS: ANESTHESIA: Monitored anesthesia care. ASSISTANTS: SPECIMENS: POSTOPERATIVE DIAGNOSES: Colorectal cancer screening and personal history of tubular adenoma of the colon, diverticulosis, and internal hemorrhoids. DESCRIPTION OF PROCEDURE: The patient was placed in the left lateral decubitus position. The digital rectal exam revealed no abnormalities. The Olympus video pediatric colonoscope was entered into the rectum and advanced easily to the cecum. Once in the cecum, I did identify normal-appearing cecal pouch with appendiceal orifice and a normal-appearing ileocecal valve. The terminal ileum was cannulated and appeared normal. Scope withdrawn back in the colon. The entire cecum and ileocecal valve appeared normal. The scope was slowly withdrawn assessing all mucosal surfaces carefully. Preparation was excellent. I did not visualize any sign of polyps, colitis, nor angiodysplasia. There was a mild amount of sigmoid diverticulosis. In the rectum, scope was retroflexed visualizing internal hemorrhoids, but no other pathology. The rectal mucosa appeared normal. The scope was straightened and withdrawn from the patient. She tolerated the procedure well and was returned to the recovery area in stable condition. IMPRESSION: 1. Diverticulosis. 2. Internal hemorrhoids. PLAN: The patient was advised to resume her aspirin today. She was advised to continue her mesalamine long-term. She will see me in 1 year for followup in the office in regard to the underlying history of collagenous colitis, which has been stable on her current regimen of the mesalamine. Given her age and today's findings, I do not think she would need any further screening colonoscopies in the future. Of note, at the beginning of the procedure it seemed that she may have had a seizure in relation to the propofol administration, but this was not definitive. The procedure was delayed because of that and she was observed in the recovery area. She did not appear postictal and had a nonfocal neurologic exam. Her mental status remained good. The anesthesiologist spoke with her neurologist, Dr. Corea, and he recommended giving her a loading dose of IV Keppra and then starting the procedure again with the propofol. She did seem to tolerate that, although still had some little apparent tremors and/or seizures at the very beginning, but that all went away as the case proceeded. From what I understand, Dr. Corea was going to send over a prescription to her pharmacy for her to start some antiseizure medication and then follow her up in the office. Instructions have been given in that regard to both the patient and her . MD JESU Martel/RJEI / [id number] MTDD
== END 2023-06-28 11:10 | disposition home or self-care (01) ==
PROVIDERS: PCP Nurse Practitioner Adult Health; Visit Provider Internal Medicine
PROC: 0DJD8ZZ Inspection of Lower Intestinal Tract, Via Natural or Artificial Opening Endoscopic (ICD-10-PCS; CPT 45378; principal; 2023-06-28 11:50)
DX: Z12.11 Encounter for screening for malignant neoplasm of colon (principal); Z86.010 Personal history of colon polyps; K57.30 Diverticulosis of large intestine without perforation or abscess without bleeding; K64.8 Other hemorrhoids; K52.831 Collagenous colitis; I65.29 Occlusion and stenosis of unspecified carotid artery; I10 Essential (primary) hypertension; E78.00 Pure hypercholesterolemia, unspecified; Z86.73 Personal history of transient ischemic attack (TIA), and cerebral infarction without residual deficits; Z79.82 Long term (current) use of aspirin; Z79.899 Other long term (current) drug therapy
CPT/HCPCS: G0105; J1953; J2250; J2704; J3010

== ENCOUNTER 2023-08-27 13:17 | Outpatient (AMB) | payer MEDICARE, SELFPAY ==
[2023-08-27 13:38] VITALS: BP 122/60; PULSE 91; TEMP 36.4; O2SAT 96; BMI 34.1
--- NOTE | 2023-08-27 13:38 | MHC.OFFWIV ---
Intake Vital Signs 08/27/23 13:38 Height 5 ft 7 in Weight 218 lb BMI 34.1 BP 122/60 Blood Pressure Location Lt brachial Position Sitting Pulse 91 Pulse Source Pulse Oximeter Temp 97.6 F Temp Source Temporal Artery Scan Pulse Oximetry (%) 96 Oxygen Delivery Method Room Air Intake Visit Reasons: EP ?UTI Intake Note: pt is here today for UTI started 1 week ago Patient Tobacco Use Status: Never used Tobacco Allergies No Known Allergies Allergy (Verified 08/27/23 13:40) Do you need a note to return to daycare/school/sports/work: No HPI HPI Comments History of Present Illness Details Patient is a 77-year-old female in today for a sick visit. Patient states that she has had suprapubic pain and burning x7 days. Has tried using cranberry juice and grab-[id number]-[id number] azo Pyridium with little relief. Patient urinalysis in office demonstrated urinary tract infection. Patient denies nausea. Will prescribe patient cephalexin to be taken as directed. PFSH Medical History Carotid stenosis Cancer Arthritis Hiatal hernia TIA (transient ischemic attack) Elevated cholesterol HTN (hypertension) Surgical History Hx of bilateral cataract extraction History of esophagogastroduodenoscopy (EGD) Hx of tracheostomy Hx of knee surgery Hx of appendectomy Hx of tonsillectomy H/O colonoscopy Social History Patient Tobacco Use Status: Never used Tobacco Second Hand Smoke Exposure: No Review of Systems Const Details: Constitutional : No Weight loss, No Fever, No Chills, No Fatigue, No Malaise Cardiovascular : No Chest Pain, No SOB, No Dyspnea on Exertion, No Orthopnea, No Edema, No Palpitations Respiratory : No Cough, No Sputum, No Wheezing Gastrointestinal : No Nausea, No Vomiting, No Diarrhea, No Constipation, No abdominal Pain, No Hematochezia, No Melena Genitourinary : Admits Dysuria, No Urinary Frequency, No Hematuria, Neuro : No Weakness, No Numbness, No Dizziness, No Headache All other systems reviewed and are negative Physical Exam Vital Signs: Last Vital Signs Temp 97.6 F 08/27/23 13:38 Pulse 91 08/27/23 13:38 BP 122/60 08/27/23 13:38 Pulse Ox 96 08/27/23 13:38 Oxygen Delivery Method Room Air 08/27/23 13:38 BMI result Body Mass Index 34.1 Const Other: Appearance: Alert.? Oriented X3.? Head: Normocephalic, atraumatic, no step-offs or deformities CVS: Normal heart rate and rhythm.? Pulses normal.? Respiratory: No respiratory distress.? Breath sounds normal.? Abd: + Suprapubic tenderness. Back: No midline tenderness, no C-spine tenderness, full range of motion, no CVA tenderness bilaterally Neuro: Oriented X 3.? No motor deficit.? No sensory deficit. CN 2-12 intact Results AMB Urinalysis, Automated UA Leukoctes 125 Lazaro/uL Last Edit by Harper Magana CMA on 08/27/23 13:52 UA Nitrite Negative Last Edit by Harper Magana CMA on 08/27/23 13:52 UA Urobilinogen 0.2 mg/dL Last Edit by Harper Magana CMA on 08/27/23 13:52 UA Protein 300 mg/dL Last Edit by Harper Magana CMA on 08/27/23 13:52 UA pH 5.5 Last Edit by Harper Magana CMA on 08/27/23 13:52 UA Blood 200 Aj/uL Last Edit by Harper Magana CMA on 08/27/23 13:52 UA Specific [place] 1.030 Last Edit by Harper Magana CMA on 08/27/23 13:52 UA Ketone Positive Last Edit by Harper Magana CMA on 08/27/23 13:52 UA Bilirubin 2 mg/dL Last Edit by Harper Magana CMA on 08/27/23 13:52 UA Glucose 0 mg/dL Last Edit by Harper Magana CMA on 08/27/23 13:52 Results Reviewed Results Reviewed: Laboratory Last Values Urine pH (Auto) 5.5 08/27/23 13:50 Specific [place] (Auto) 1.030 08/27/23 13:50 Urine Protein (Auto) 300 mg/dL 08/27/23 13:50 Glucose (UA)(Auto) 0 mg/dL 08/27/23 13:50 Urine Ketones (Auto) Positive 08/27/23 13:50 Urine Blood (Auto) 200 Aj/uL 08/27/23 13:50 Urine Nitrite (Auto) Negative 08/27/23 13:50 Urine Bilirubin (Auto) 2 mg/dL 08/27/23 13:50 Urine Urobilinogen (Auto) 0.2 mg/dL 08/27/23 13:50 Leukocyte Esterase (Auto) 125 Lazaro/uL 08/27/23 13:50 Assessment & Plan Assessment & Plan (1) Urinary tract infection: Comment: Will prescribe cephalexin to be taken as directed. Patient has been educated on the side effects of this medication. Code(s): N39.0 - Urinary tract infection, site not specified Qualifiers: Hematuria presence: without hematuria Urinary tract infection type: site unspecified Qualified Code(s): N39.0 - Urinary tract infection, site not specified Plan: Take your medications as prescribed. If you were prescribed antibiotics today, it is important that you take your medication to their entirety, do not skip any doses, do not finish them early. Follow-up with your primary care provider this week. Return to the emergency department with new or worsening symptoms. Such as fevers, chills, chest pain, shortness of breath, nausea, vomiting, dizziness, headache, vision changes, lethargy In case of emergency call 911 Plan Follow-up with PCP. Orders: Orders AMB Urinalysis Automated Today Z13.9 - Encounter for screening, unspecified UA CC w/rflx Micro + Cult Today R10.2 - Pelvic and perineal pain Medications: New cephalexin 500 mg PO Q12H 14 caps 0RF Coding Level of Care Code Est Pt Level 3 (44310) Diagnoses Urinary tract infection without hematuria, site unspecified N39.0 Hematuria presence: without hematuria Urinary tract infection type: site unspecified
== END 2023-08-27 14:33 | disposition home or self-care (01) ==
PROVIDERS: PCP Nurse Practitioner Family; Visit Provider Nurse Practitioner Primary Care
DX: N39.0 Urinary tract infection, site not specified (principal)
CPT/HCPCS: 81003; 99213

== ENCOUNTER 2023-08-27 15:02 | Outpatient (REF) | payer MEDICARE, SELFPAY | END 2023-08-27 15:03 | disposition home or self-care (01) | LOC: HO.LAB 15:02 | PROVIDERS: Visit Provider Nurse Practitioner Primary Care | DX: N39.0 Urinary tract infection, site not specified (principal); R10.2 Pelvic and perineal pain | CPT/HCPCS: 87086; 87088; 87186 ==

== ENCOUNTER 2024-03-24 11:01 | Outpatient (REF) | payer MEDICARE, SELFPAY ==
--- NOTE | ~2024-03-24 | MM_ITS ---
EXAMINATION: MM SCREENING DIGITAL BREAST TOMOSYNTHESIS, BILATERAL CLINICAL INFORMATION: Screening. Asymptomatic. COMPARISON: Mammography: Comparison is made with available priors TECHNIQUE: Digital breast mammography with tomosynthesis is performed in both the craniocaudal and mediolateral oblique views along with computer-aided detection (CAD). FINDINGS: The breasts are heterogeneously dense, which may obscure small masses (ACR BI-RADS breast composition Category c). There are no significant masses, abnormal calcifications, or other abnormalities. MM/MM tomosynthesis screening BI IMPRESSION: No mammographic evidence of malignancy. ASSESSMENT: BI-RADS BI-RADS 1 - Negative RECOMMENDATION: Routine annual mammography screening. 1 year F/U This examination should not preclude the clinical evaluation of a suspicious palpable abnormality. This patient's information was entered into a reminder system with a target due date for their next mammogram. Electronically signed by: Sofie Agustin DO 04/06/2024 04:18 PM EDT
== END 2024-03-24 11:02 | disposition home or self-care (01) ==
LOC: HO.MAMMO 11:01
PROVIDERS: Absent Provider Nurse Practitioner Adult Health; PCP Student in an Organized Health Care Education/Training Program; Visit Provider Student in an Organized Health Care Education/Training Program
DX: Z12.31 Encounter for screening mammogram for malignant neoplasm of breast (principal)
CPT/HCPCS: 77063; 77067

== ENCOUNTER → 2024-03-24 11:30 | Outpatient (BNV) | payer MEDICARE, SELFPAY | PROVIDERS: Absent Provider Nurse Practitioner Adult Health; PCP Student in an Organized Health Care Education/Training Program; Visit Provider Internal Medicine | DX: Z12.31 Encounter for screening mammogram for malignant neoplasm of breast (principal) | CPT/HCPCS: 77063; 77067 ==

== ENCOUNTER 2024-06-08 10:17 | Outpatient (REF) | payer MEDICARE, SELFPAY ==
--- NOTE | ~2024-06-08 | US_ITS ---
EXAMINATION: US EXTRACRANIAL CAROTID DUPLEX, BILATERAL CLINICAL INFORMATION: Bilateral carotid stenosis COMPARISON: Carotid ultrasound 06/04/2023 TECHNIQUE: Real-time ultrasound and Doppler techniques (integrating B-mode 2-D vascular images, Doppler spectral analysis and color-flow Doppler imaging) were utilized to interrogate the extracranial carotid arteries, the vertebral arteries and proximal subclavian arteries bilaterally. The degree of stenosis is determined by criteria similar to NASCET. FINDINGS: Right Side: 1. There is marked atherosclerotic plaque seen in the bifurcation/proximal ICA region. 2. The common carotid artery PSV proximally is 67 cm/s and distally 61 cm/s. 3. The proximal internal carotid artery velocities are 203 cm/s systolic and 41 cm/s diastolic. 4. The proximal external carotid artery PSV is 173 cm/s. 5. The vertebral artery shows antegrade flow. 6. The subclavian artery waveforms are normal. Left Side: 1. There is mild to moderate atherosclerotic plaque seen in the bifurcation/proximal ICA region. 2. The common carotid artery PSV proximally is 76 cm/s and distally 6 cm/s. 3. The proximal internal carotid artery velocities are 152 cm/s systolic and 35 cm/s diastolic. 4. The proximal external carotid artery PSV is 123 cm/s. 5. The vertebral artery shows antegrade flow. 6. The subclavian artery waveforms are normal. US/US carotid duplex BI IMPRESSION: 1. RIGHT: Moderate, hemodynamically significant stenosis of the proximal right internal carotid artery corresponding to a 50-79% stenosis by velocity criteria. 2. LEFT: Moderate, hemodynamically significant stenosis of the proximal left internal carotid artery corresponding to a 50-79% stenosis by velocity criteria. 3. There is no change in the category severity of disease when compared to the previous study dated 06/04/2023. Electronically signed by: Otoniel Newby MD 06/24/2024 04:51 PM EST
== END 2024-06-08 10:18 | disposition home or self-care (01) ==
LOC: HO.HMGCX 10:17
PROVIDERS: PCP Student in an Organized Health Care Education/Training Program; Visit Provider Internal Medicine
DX: I65.23 Occlusion and stenosis of bilateral carotid arteries (principal)
CPT/HCPCS: 93880

== ENCOUNTER 2025-03-29 11:01 | Outpatient (REF) | payer MEDICARE, SELFPAY ==
--- OUTSIDE RECORDS SUMMARY | 2025-03-25 14:40 | XMS_ITS | Encounter Summary ---
Author Organization [facility] Address [address] [place] [address] Phone Care Team Providers Care Educational Technician Name Role Phone Larry Daley MD Unavailable [phone] Angelica Corea MD Unavailable [phone] David Quintero PA-C Primary Care Provider [phone] Reason for Referral * Consultation (Within 1 month) - Authorized Specialty Diagnoses / Procedures Referred By Olman lyman Referred To Contact Diagnoses Hoarseness of voice Arielle Bundy PA-C [address] [place] [address] Phone: tel: fax: [email or web address] Juan Lares MD [address] [place] [address] Dr [facility]OVE [address] [place] [address] Phone: tel: fax: Referral ID Status Reason Start Date Expiration Date V isits Requested Visits Authorized [id number] Authorized 03/25/2025 03/25/2026 1 1 Reason for Visit * Reason Comments Follow Up Visit ENT Referral Encounter Details Date Type Department Care Team (Late st Contact Info) Description 03/25/2025 2:40 PM EDT Office Visit [facility] Internal Medicine [address] [place] [address] Arielle Bundy PA-C [address] [place] [address] [email or web address] Hoarseness of voice (Primary Dx) Social History Tobacco Use Types Packs/Day Years Used Date Smoking Tobacco: Never Smokeless Tobacco: Never Alcohol Use Standard Drinks/Week Comments Not Currently 0 (1 standard drink = 0.6 oz pur e alcohol) Child or Family Care Answer Date Record ed Do you have problems with on e of the following making it difficult for you to work, study, or receive health care? No 05/08/2022 Education Answer Date Recorded Are you interested in more education? Not on marisol e 05/11/2024 Are you concerned about learning? Not on file 05/11/2024 No 05/11/2024 No 05/11/2024 Food Answer Date Recorded Within the past 6 months we worried whether our food would run out before we got money to buy more. Never True 05/08/2022 Within the past 6 months the food we bought just didn't last and we didn't have enough money to get more. Never True Residential Stability Answer Date Recor ded What is your housing situation today? I have benjamin sing 05/08/2022 How many times have you move d in the past 12 months? Zero (I did not move) 05/08/2022 Paying for Meds Answer Date Recorded Do you have trouble paying for medicines? No 05/08/2022 Paying Utility Bills Answer Date Record ed Do you have trouble paying your heating or elect ricity bill? No 05/08/2022 Transportation Answer Date Recorded Has the lack of transportati on kept you from medical appointments or from getting medications? No 05/08/2022 Unemployment Answer Date Recorded Are you currently unemployed or working on a part-time or temporary basis, and looking for work? No 05/08/2022 Digital Access Answer Date Recorded No 12/03/2022 No 12/03/2022 Reliable internet access at home? Not on file 12/03/2022 Device with a working camera? Not on file Intimate Partner Violence Answer Date R ecorded Denied Basic Needs Not on file 07/30/2024 In the past 12 months have y ou been in a relationship with a person who hurts, threatens, or tries to control you? No 07/30/2024 Worried food would run out Not on file 07/30 In the past 12 months have y ou been in a relationship with a person who hurts, threatens, or tries to control you? No 07/30/2024 Comments Unknown Sex and Gender Information Value Date Recorded Sex Assigned at Female 11/16/2021 7:32 PM EDT Legal Sex Female 10:37 PM EDT Gender Identity Female 11/16/2021 7:32 PM EDT Sexual Orientation Straight 11/16/2021 7: 32 PM EDT documented as of this encounter Last Filed Vital Signs Vital Sign Reading Time Taken Comments Blood Pressure 100/60 03/25/2025 2:39 PM EDT Pulse 67 03/25/2025 2:39 PM EDT Temperature 36.3 C (97.3 F) 03/25/2025 2:39 PM EDT Respiratory Rate 13 03/25/2025 2:39 PM EDT Oxygen Saturation 97% 03/25/2025 2:39 PM EDT Inhaled Oxygen Concentration - - Weight 73 kg (161 lb) 03/25/2025 2:39 PM EDT Height 168.5 cm (5' 6.34 ) 03/25/2025 2:39 PM ED T Body Mass Index 25.72 03/25/2025 2:39 PM EDT documented in this encounter Progress Notes * Arielle Bundy PA-C - 03/25/2025 2:40 PM EDT Subjective Teodora Duran is a 79 y.o. female. History of Present Illness The patient is a 79-year-old female who presents for a sick visit. She has been experiencing increasing hoarseness for approximately 2 months, which has progressed tothe point where her voice is almost inaudible or crackles by the end of the day. She reports no difficulty swallowing, pain during speech, drooling, or breathing difficulties. She also reports no pain or palpable masses in her throat. 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 She is curious if her current symptoms could be related to this past condition. She has a family history of thyroid issues and was tested for TSH levels some time ago, which were normal. She also has a history of melanoma. Current Outpatient Medications Ordered in [facility] Medication Sig aspirin 81 MG EC tablet Take 81 mg by mouth daily. betamethasone dipropionate 0.05 % cream APPLY TO RASH TWICE A DAY NEEDED FOR UP TO 14 DAYS PER MONTH budesonide (ENTOCORT EC) 3 mg 24 hr capsule Take 3 mg by mouth every morning. clobetasol (TEMOVATE) 0.05 % cream APPLY TO AREAS OF LICHEN SCLEROSIS 3X A WEEK AND TWICE A DAY NEEDED DURING FLARES. coenzyme Q10 100 mg capsule Take 400 mg by mouth daily. cyanocobalamin, vitamin B-12, 1000 MCG tablet Take 1,000 mcg by mouth daily. hyoscyamine (LEVBID) 0.375 mg 12 hr tablet Take 0.375 mg by mouth every 12 (twelve) hours as neededfor cramping (specific location in comments). mesalamine (LIALDA) 1.2 gram EC tablet Take 1,200 mg by mouth daily. nystatin cream rosuvastatin (CRESTOR) 40 MG tablet Take 1 tablet (40 mg total) by mouth daily. vit C/E/Zn/coppr/lutein/zeaxan (PRESERVISION AREDS-2 ORAL) Take 1 tablet by mouth daily. biotin 1 mg tablet Take 1,000 mcg by mouth daily. (Patient not taking: Reported on 03/25/2025) Review of Systems All other systems reviewed and are negative. Objective Physical Exam Blood pressure 100/60, pulse 67, temperature 36.3 ??C (97.3 ??F), temperature source Temporal, resp. rate 13, height 168.5 cm (5' 6.34 ), weight 73 kg (161 lb), SpO2 97%. Gen: Alert, pleasant and cooperative, no acute distress. HEENT: Atraumatic, normocephalic. PERRL. No gross hearing deficits noted. Mucous membranes moist. Neck supple and symmetrical. No palpable cervical adenopathy. Thyroid normal to inspection and palpation, no palpable nodules. Skin: [place], warm, dry. Chest: Equal chest rise and fall, no respiratory distress. Ext: No gross deformities. Moving all extremities comfortably. Neuro: CN II-XII grossly intact. Alert and oriented x 3. Normal speech and language. Memory intact.Mood appropriate. Results Latest Reference Range & Units 07/20/24 08:08 TSH 0.27 - 4.20 uIU/mL 2.37 Assessment & Plan 1. Hoarseness: She reports new onset of hoarseness of her voice for the past 2 months. On exam, neck was supple and symmetrical, no palpable cervical adenopathy and thyroid was normal to inspection and palpation with no palpable nodules. She denies any dysphagia, drooling, difficulty breathing. Will refer to ENT per patient request for further evaluation. Advised to contact the office if symptoms change or worsen. I obtained verbal consent from the patient or their proxy to record this visit for purposes of producing a draft of the encounter documentation. Arielle Bundy PA-C documented in this encounter Miscellaneous Notes * Assessment & Plan Note - Arielle Bnudy PA-C - 03/25/2025 2:58 PM EDT Associated Problem(s): Hoarseness of voice She reports new onset of hoarseness of her voice for the past 2 months. On exam, neck was supple and symmetrical, no palpable cervical adenopathy and thyroid was normal to inspection and palpation with no palpable nodules. She denies any dysphagia, drooling, difficulty breathing. Will refer to ENT per patient request for further evaluation. Advised to contact the office if symptoms change or worsen. documented in this encounter Plan of Treatment Upcoming Encounters Date Type Department Care Team (Late st Contact Info) Description 08/03/2025 1:00 PM EST Office Visit [facility] [address] [place] [address] David Quintero PA-C [address] [place] [address] [email or web address] Scheduled Referrals Name Type Priority Associated Diagnoses Order Schedule Ambulatory referral to External Otolaryngology Outpatient Referral Routine Hoarseness of voice Ordered: 03/25/2025 documented as of this encounter Visit Diagnoses Diagnosis Hoarseness of voice- Primary Dysphonia documented in this encounter Additional Health Concerns Assessment Noted Time PHQ-2 Depression Total Score: 0 07/30/19 25 12:36 PM EST documented as of this encounter Care Teams Educational Technician Relationship Specialty Start Date End Date David Quintero PA-C [address] [place] [address] [email or web address] PCP - General Physician Bioengineer 03/30/24 Larry Daley MD [address] [place] [address] Drive [address] [place] [address] Gastroenterology 04/18/20 Angelica Corea MD [address] [place] [address] [address] Neurology 05/24/20 documented as of this encounter Additional Source Comments The information contained in this document represents components of the legal health record. It is not the complete legal health record.[facility]
--- NOTE | ~2025-03-29 | MM_ITS ---
EXAMINATION: MM SCREENING DIGITAL BREAST TOMOSYNTHESIS, BILATERAL CLINICAL INFORMATION: Screening. Asymptomatic. COMPARISON: Comparison made to multiple prior, most recent March 24, 2024, and most remote February 10, 2020. TECHNIQUE: Digital breast tomosynthesis is performed in mediolateral oblique and craniocaudal views along with computer-aided detection (CAD). Synthesized 2D images are generated from the tomosynthesis. FINDINGS: BREAST COMPOSITION: The breasts are heterogeneously dense, which may obscure small masses. BILATERAL BREASTS: No significant masses, suspicious calcifications or other abnormalities are seen in either breast. MM/MM tomosynthesis screening BI IMPRESSION: BILATERAL BREASTS: Negative, no mammographic evidence of malignancy. Normal interval follow-up is recommended in 12 months. ASSESSMENT: BI-RADS: Category 1: Negative RECOMMENDATION: Routine annual mammography screening. FOLLOW-UP: 1 year F/U This examination should not preclude the clinical evaluation of a suspicious palpable abnormality. This patient's information was entered into a reminder system with a target due date for their next mammogram. Electronically signed by: Lillian Mcconnell MD 03/30/2025 06:29 PM EDT
--- OUTSIDE RECORDS SUMMARY | 2025-03-29 13:40 | XMS_ITS | Patient Health Record ---
Author Organization [facility] Address [address] [place] [address] Care Team Providers Care Production Control Expediter Name Role Phone David Quintero M.D. Primary Care Provider Larry Flowers Unavailable [phone] Allergies No Known Allergies Reason For Referral No Information Medications Medication SIG (Take, Route, Frequency, Duration) Notes Start Date End Date Status Budesonide 3 MG 3 Orally daily for 9 0 days Active Hyoscyamine Sulfate ER 0.375 MG 1 tablet Orally every 12 hrs for abdominal cramps and discomfort for 30 days 09/18/2017 Active Mesalamine 1.2 GM TAKE 4 TABLETS BY [facility] EVERY DAY FOR 90 DAYS. for 90 Active Vitamin B12 Active Budesonide 3 MG 3 QD for 6 weeks, an d then 2 QD for 2 weeks Orally Once a day for 30 Not-Taking Vitamin D3 Active CoQ10 Active Aspirin 81 81 MG 1 tablet Orally Once a day for 30 day(s) Active Rosuvastatin Calcium 40 MG 1 tablet Orally Once a day Active Lialda 1.2gm 4 tabs po qd Acti ve Mesalamine TAKE 4 TABLETS BY [facility] EVERY DAY FOR 90 DAYS. Orally Once a day for 90 days Active Ocuvite Active Budesonide 3 MG 3 Orally Once a day for 30 day(s) 01/28/2024 Active Cranberry Active Immunizations Vaccine Route Administration Date Status Comme nts Influenza Unknown 03/08/2019 Administered Influenza Unknown 09/15/2020 Administered Influenza Unknown 03/08/2020 Administered Social History AUDIT-C (Standard) Question Answer Notes Did you have a drink containing alcohol in the p ast year? No Points 0 Interpretation Negative Section Notes: Nonsmoker; 2-3 drinks per ni ght(stopped since the diarrhea started) Nonsmoker; 2-3 drinks per ni ght(stopped since the diarrhea started) Nonsmoker; 2-3 drinks per ni ght(stopped since the diarrhea started) Nonsmoker; 2-3 drinks per ni ght(stopped since the diarrhea started) Nonsmoker; 2-3 drinks per ni ght(stopped since the diarrhea started) Nonsmoker; no sig. alcohol Nonsmoker; no sig. alcohol Nonsmoker; no sig. alcohol Nonsmoker; no sig. alcohol Nonsmoker; no sig. alcohol Nonsmoker; no sig. alcohol Problems Problem Type SNOMED Code ICD Code Onset Dates Problem Status W/U Status Risk Notes Problem 312163426 Encounter for screening for malignant neoplasm of colon (Z12.11) Active confirmed Problem 801023180 History of adenomatous polyp of colon (Z86.010) Active confirmed Problem History of polyp of colon (situation) (975189155) Personal history of colonic polyps (Z86.010) Active confirmed Problem Diverticular disease of colon (171085327) Diverticulosis of large intestine without perforation or abscess without bleeding (K57.30) Active confirmed Problem 84415612 Collagenous colitis (K52.89) Active confirmed Problem 15670715 Diarrhea, unspecified type (R19.7) Active confirmed Vital Signs Blood pressure diastolic 111 mm Hg 09/24/2024 Height 67 in 09/24/2024 Blood pressure systolic 111 mm Hg 09/24/2024 Weight 169 lbs 09/24/2024 BMI 26.47 kg/m2 09/24/2024 Encounters Encounter Location Date Provider Diagnosis [facility] [address] [place] [id number] 09/24/2024 Larry Daley Collagenous colitis K52.89 and History of adenomatous polyp of colon Z86.010 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 We did review the negative colonoscopy in 2022 and I advised her that I do not think she would need any further screening colonoscopies going forward. Her collagenous colitis seems to be quite stable at the present time but I did advise her to use 2 of the 1.2 g mesalamine daily to hopefully maintain remission of the colitis. I did advise her that she should not use the budesonide on a as needed basis but could certainly continue the hyoscyamine as needed. I did advise her the lactose-free diet seems like a good idea. If things remain well I will plan to see her in 1 year for a follow-up visit. I did advise her to certainly call in the interim if she has any problems or questions I can be of assistance with.. Nicho was comfortable with this plan. Thank you again for allowing me to participate in Nicho's care. I shall continue to keep you advised of her progress. 09/24/2024 History of adenomatous polyp of colon (ICD-10 - Z86.010) .Overall, Nicho appears quite well. We did review the negative colonoscopy in 2022 and I advised her that I do not think she would need any further screening colonoscopies going forward. Her collagenous colitis seems to be quite stable at the present time but I did advise her to use 2 of the 1.2 g mesalamine daily to hopefully maintain remission of the colitis. I did advise her that she should not use the budesonide on a as needed basis but could certainly continue the hyoscyamine as needed. I did advise her the lactose-free diet seems like a good idea. If things remain well I will plan to see her in 1 year for a follow-up visit. I did advise her to certainly call in the interim if she has any problems or questions I can be of assistance with.. Nicho was comfortable with this plan. Thank you again for allowing me to participate in Nicho's care. I shall continue to keep you advised of her progress. Plan Of Treatment Pending Test Test Name Order Date ELECTROLYTES 10/19/2014 ELECTROLYTES 06/24/2012 BUN 06/24/2012 BUN 10/19/2014 CREATININE 10/19/2014 CREATININE 06/24/2012 ENDOMYSIAL IGA 10/11/2011 TRANSGLUTAMINASE AB IGA 10/11/2011 TRANSGLUTAMINASE AB IGG 10/11/2011 STOOL WBC 12/30/2018 Future Test Test Name Order Date COLONOSCOPY 10/11/2011 COLONOSCOPY 05/21/2017 COLONOSCOPY 03/19/2023 Next Appt Details Provider Name:Larry Daley , 09/30/2025 11:00:00 AM, [address], [address], [place], [address], Insurance Providers Payer Name Payer Address Payer Phone Subscriber Number Group Number Insured Name Patient Relationship to Insured Coverage Start Date Coverage End Date MEDICARE OF [place] [address] [place] [address] [id number] NICHO DELEON Self - patient is the insured [employer] CLAIMS [address] [place] [phone] [id number] NICHO DELEON Self - patient is the insured Medical (General) History Medical History History ICD Code Denies [place],DM,CVA,Lung disease,renal dise ase Collagenous colitis diagnose d in 10/2011--she stopped her Lialda in 03/2017, but she resumed it in 2018 after having recurrent diarrhea. She did need a course of budesonide in 2017 and in 12/2018. Tubular adenoma removed in 10/2011 Negative EGD in 10/2011 excep t for a dario esophagitis--duodenal bx neg for celiac disease HTN TIA/ISCHEMIC SMALL VESSEL DISEASE 02/12/20--SEES DR. ALFRED Colonoscopy 07/2017 with a small tubular adenoma Arthritis Negative screening colonoscopy in [facility] 2022 Surgical History Surgery Date(Month/Year) Bilateral cataracts with lens implants 2 020 Knee Appy Tracheostomy due to H.influenzae
--- OUTSIDE RECORDS SUMMARY | 2025-03-29 13:40 | XMS_ITS | Clinical Summary ---
Author Organization [address] Address [address] [place] [phone] Phone Care Team Providers Care Oil Field Pumper Name Role Phone Luciana Valdivia Primary Care Provider Unavailabl e Allergies No known active allergies Medications hydroCHLOROthia zide (HYDRODIURIL) 25 MG tablet Take 25 mg by mouth daily. 3 12/03/2018 Active mesalamine (LIALDA) 1.2 gram EC tablet Take 4 tablets by mouth daily. 11 12/07/2018 Active atorvastatin (LIPITOR) 40 MG tablet Take 1 tablet (40 mg total) by mouth daily. 30 tablet 02/12/2019 Active aspirin 325 MG EC tablet Take 1 tablet (325 mg total) by mouth daily. 100 tablet 02/13/2019 Active Active Problems No known active problems Resolved Problems Problem Noted Date Diagnosed Date Resolved Date TIA involving vertebral artery 02/11/2019 02/12/2019 Family History Medical History Relation Name Comments Stroke Father Stroke Mother Relation Name Status Comments Father Mother Social History Tobacco Use Types Packs/Day Years Used Date Smoking Tobacco: Never Smokeless Tobacco: Never Alcohol Use Standard Drinks/Week Comments Yes 0 (1 standard drink = 0.6 oz pur e alcohol) socially Comments Unknown Sex and Gender Information Value Date Recorded Sex Assigned at Not on file Legal Sex Female 8:58 AM EDT Gender Identity Female 02/11/2019 10:47 AM EDT Sexual Orientation Not on file Occupation Industry Job Start Date Job End Date Nurse Not on file Not on file Not on file Last Filed Vital Signs Vital Sign Reading Time Taken Comments Blood Pressure 142/79 02/12/2019 2:01 PM EDT Pulse 82 02/12/2019 2:01 PM EDT Temperature 36.4 C (97.6 F) 02/12/2019 2:01 PM EDT Respiratory Rate 16 02/12/2019 2:01 PM EDT Oxygen Saturation 98% 02/12/2019 2:01 PM EDT Inhaled Oxygen Concentration - - Weight 102 kg (224 lb 13.9 oz) 02/11/2019 2:13 P M EDT Height 170.2 cm (5' 7 ) 02/11/2019 2:13 PM EDT Body Mass Index 35.22 02/11/2019 2:13 PM EDT Plan of Treatment Health Maintenance Due Date Last Done Comments HIV screening 1958 Hepatitis C screening 10/27/1963 Tetanus adult (Td q 10,TDAP once) 1965 Shingles vaccine (Shingrix) (1 of 2 - Shingrix (RZV) 2 Dose Standard Series) 10/27/1995 Osteoporosis screening (bone density) 2010 RSV Immunization (1 - 1-dose 75+ series) 2020 Diabetes screening 02/12/2022 02/12/2019, 02/11/2019, 02/11/2019 Lipid disorder screening 02/13/2024 019, 02/12/2019 Influenza vaccine 02/05/2025 04/02/2017, 03/27/2016 Covid-19 vaccine series ( season) 2025 Pneumococcal Vaccine (50+ years) Completed 04/03/2018, 03/27/2016 Breast cancer screening Discontinued Cervical cancer screening Discontinued Colon cancer screening, Colonoscopy Discontinued Meningococcal B Vaccine Aged Out No l onger eligible based on patient's age to complete this topic Meningococcal Vaccine Aged Out No rajan ernesto eligible based on patient's age to complete this topic Procedures Procedure Name Priority Date/Time Associated Diagnosis Comments COMPREHENSIVE METABOLIC PANEL Routine 02/12/2019 5:37 AM EDT LIPID PANEL Routine 02/12/2019 5:37 AM EDT from Last 3 Months or Most Recently Relevant to Health Maintenance Results * (ABNORMAL) Comprehensive metabolic panel (02/12/2019 5:37 AM EDT) Sodium 144 136 - 145 mmol/L [facility]2019 [facility] Potassium 3.6 3.5 - 5.1 mmol/L 02/12/2019 7:12 AM [facility] Chloride 108(H) 98 - 107 mmol/L 02/12/2019 7:12 AM [facility] CO2 31 21 - 32 mmol/L 02/12/2019 7:12 AM [facility] Anion Gap 5 5 - 15 mmol/L 02/12/2019 7:12 AM [facility] Glucose 92 65 - 110 mg/dL 02/12/2019 7:12 AM [facility] Comment: Non-fastin-110 mg/dL Fasting (minimum 6 hrs): 65-99 mg/dL BUN 11 7 - 18 mg/dL 02/12/2019 7:12 AM [facility] Creatinine 0.66 0.55 - 1.02 mg/dL 02/12/2019 7:12 AM [facility] eGFR (-MALIAN) >60 >60 mL/min/1. 73m2 02/12/2019 7:12 AM [facility] eGFR (NON -Ethiopian) >60 >60 mL/min/1. 73m2 02/12/2019 7:12 AM [facility] Comment: (NOTE) These are estimated GFR values resulting from utilization of a calculation incorporating the best data available for input, but all assumptions may not be correct in every case. In addition, there are several situations (elderly over 70 years, , serious co morbidities, extremes of body size or nutritional status) which could contribute to a misleading result. Therefore, clinical correlation is advised to prevent arriving at an erroneous conclusion based solely on the calculation utilized. Calcium 8.4(L) 8.5 - 10.1 mg/dL 02/12/2019 7:12 AM [facility] Total Protein 5.8(L) 6.4 - 8.2 g/dL 02/12/2019 7:12 AM [facility] Albumin 3.2(L) 3.4 - 5.0 g/dL 02/12/2019 7:12 AM [facility] Globulin 2.6 2.5 - 5.0 g/dL 02/12/2019 7:12 AM [facility] Total Bilirubin 0.9 0.2 - 1.0 mg/dL 02/12/2019 7:12 AM [facility] Alkaline Phosphatase 76 45 - 117 U/L 02/12/2019 7:12 AM [facility] Alanine Aminotransferase (ALT) 26 12 - 78 U/L 02/12/2019 7:12 AM [facility] Aspartate Aminotransferase (AST) 14(L) 15 - 37 U/L 02/12/2019 7:12 AM [facility] Blood Venipuncture / Unknown 02/12/2019 5:37 AM EDT 02/12/2019 6:24 AM EDT us Nini Gallagher MD LAB BLOOD ORDERABLES Final R esult [facility] [address] [place] [address], [facility] [phone] * (ABNORMAL) Lipid Panel (02/12/2019 5:37 AM EDT) Cholesterol 205(H) See Comment mg/dL 02/12/2019 7:12 AM [facility] Comment: Cholesterol Reference Range: Desirable: <200 mg/dL Borderline: 200-240 mg/dL High Risk: >240 mg/dL HDL 72(H) See Comment mg/dL 02/12/2019 7:12 AM [facility] Comment: HDL Reference Range: Low: <40 High: > or = 60 Triglycerides 136 See Comment mg/dL 02/12/2019 7:12 AM [facility] Comment: Triglyceride Reference Range: Normal: <150 mg/dL Borderline High: 150-199 mg/dL High: 200-499 mg/dL Very High: >or= 500 mg/dL LDL Calculated 106(H) See Comment mg/dL 02/12/2019 7:12 AM [facility] Comment: LDL Reference Range: Optimal: <100 mg/dL Near/Above Optimal: 100-129 mg/dL Borderline High: 130-159 mg/dL High: 160-189 mg/dL Very High: >or= 190 mg/dL Blood Venipuncture / Unknown 02/12/2019 5:37 AM EDT 02/12/2019 6:24 AM EDT us Nini Gallagher MD LAB BLOOD ORDERABLES Final R esult [facility] [address] [place] [address], [facility] [phone] from Last 3 Months or Most Recently Relevant to Health Maintenance Insurance UMR UMR UMR Advance Directives * Full ACLS (Latest Code Status on File) Date Activated Date Inactivated Comments 02/11/2019 3:06 PM 02/12/2019 8:05 PM Question Answer Comments With Whom was the Code Status Discussed? Patient Care Teams Oil Field Pumper Relationship Specialty Start Date End Date Luciana Valdivia PCP - General 02/11/19
--- OUTSIDE RECORDS SUMMARY | 2025-03-29 13:40 | XMS_ITS | Clinical Summary ---
Author Organization [facility] Address [address] [place] [phone] Phone Care Team Providers Care Oracle Manufacturing Consultant Name Role Phone Larry Daley MD Unavailable [phone] Angelica Corea MD Unavailable David Quintero PA-C Primary Care Provider [phone] Allergies No known active allergies Medications mesalamine (LIALDA) 1.2 gram EC tablet Take 1,200 mg by mouth daily. Active vit C/E/Zn/coppr/lutei n/zeaxan (PRESERVISION AREDS-2 ORAL) Take 1 tablet by mouth daily. Active aspirin 81 MG EC tablet Take 81 mg by mouth daily. Active coenzyme Q10 100 mg capsule Take 400 mg by mouth daily. Active nystatin cream 1 Active cyanocobalamin, vitamin B-12, 1000 MCG tablet Take 1,000 mcg by mouth daily. Active biotin 1 mg tablet Take 1,000 mcg by mouth daily. Active clobetasol (TEMOVATE) 0.05 % cream APPLY TO AREAS OF LICHEN SCLEROSIS 3X A WEEK AND TWICE A DAY NEEDED DURING FLARES. 4 Active betamethasone dipropionate 0.05 % cream APPLY TO RASH TWICE A DAY NEEDED FOR UP TO 14 DAYS PER MONTH 4 Active budesonide (ENTOCORT EC) 3 mg 24 hr capsule Take 3 mg by mouth every morning. Active rosuvastatin (CRESTOR) 40 MG tabletIndications: Mixed hyperlipidemia Take 1 tablet (40 mg total) by mouth daily. 90 tablet 3 5 Active hyoscyamine (LEVBID) 0.375 mg 12 hr tablet Take 0.375 mg by mouth every 12 (twelve) hours as needed for cramping (specific location in comments). Active Active Problems Problem Noted Date Diagnosed Date Hoarseness of voice 03/25/2025 Assessment & Plan (03/25/2025 2:58 PM EDT): She reports new onset of hoarseness of [...] the office if symptoms change or worsen. Low blood pressure 01/20/2025 Assessment & Plan (01/20/2025 1:32 PM EDT): Patient previously carried a history of hypertension however has not been on any medications. Patient mentions that she has had lower blood pressure readings 1 of which was noted to be 88/51 and during that timeframe ended up having a bag of chips. She has been working on increasing her fluid intake. Patient mentions that during the summer months this usually happens as she gets so busy and forgets to drink fluids. She denies any lightheadedness or dizziness. She does mention however upon standing from squatting or sitting as she tends to have some symptoms however was told to be cautious with this. Today her blood pressure is noted to be 98/50 and states that she feels well. She denies any dizziness or lightheadedness. - I have advised the patient to increase her fluid intake increasing water - She was advised to refrain from caffeinated or alcoholic beverages which could dehydrate her -She was also advised drinking pickle juice or having pickles/chips to help with sodium to hang onto water would be beneficial -She was also advised that she could use liquid IV or Pedialyte on occasion to help as well. PAT (paroxysmal atrial tachycardia) 01/20/2025 Assessment & Plan (01/20/2025 1:34 PM EDT): Patient mentions around 615 she got up and went for a walk which was uphill to a golf course. She mentions that prior to her going she had a large iced coffee and then developed some throat burning and believes that she went into PAT. She states that her walk was roughly about 40 minutes and during this timeframe she did not experience any shortness of breath, lightheadedness, dizziness, or chest pain. Her symptoms completely resolve by the time she returned. I believe that the throat burning may have been due to reflux secondary to the caffeine on an empty stomach. The PAT was most likely in relation to caffeine and/or dehydration. Patient was advised to avoid caffeinated beverages and if this happens again she is to return to the office or go to the emergency department for further evaluation. Annual physical exam 06/01/2024 Assessment & Plan (06/01/2024 1:51 PM EST): For upcoming physical exam we will obtain a lipid panel, TSH, hemoglobin A1c, and a CMP History of adenomatous polyp of colon 05/14/2023 05/14/2023 History of TIA (transient ischemic attack) 02/27 Assessment & Plan (01/20/2025 1:35 PM EDT): Patient with a history of TIA in the past who follows with Dr. Anmol luna. She states that she normally follows every 6 months. She is maintained on aspirin and Crestor. Assessment & Plan (06/01/2024 1:50 PM EST): Patient with a history of TIA in the past who follows with Dr. Anmol luna. She states that she normally follows every 6 months. She is maintained on aspirin and Crestor. Alcohol use 04/03/2018 History of melanoma 04/03/2018 Assessment & Plan (06/01/2024 1:51 PM EST): Follows with dermatology and has an appointment coming up in October 2024 Resolved Problems Problem Noted Date Diagnosed Date Resolved Date Impaired fasting blood sugar 05/02/2021 01/20/2025 Assessment & Plan (06/01/2024 1:51 PM EST): Patient noted to have an elevated blood sugar on prior CMP's. Obtain hemoglobin A1c Elevated bilirubin 04/20/2020 Mixed hyperlipidemia 04/20/2020 025 Collagenous colitis 04/03/2018 01/21/20 Assessment & Plan (06/01/2024 1:51 PM EST): Patient follows closely with GI Dr. Daley with her last colonoscopy being in May 2023. Continue as mesalamine 1200 mg p.o. daily Essential hypertension 04/03/201806/01 Overweight 04/03/2018 01/20/2025 Postmenopausal 04/03/2018 06/01/2024 Encounters Date Type Department Care Team Description 03/25/2025 2:40 PM EDT Office Visit [facility] Internal Medicine [address] [place] [address] Arielle Bundy PA-C Hoarseness of voice (Primary Dx) 01/20/2025 1:00 PM EDT Office Visit [facility] Internal Medicine [address] [place] [address] David Quintero PA-C Hypotension, unspecified hypotension type (Primary Dx); PAT (paroxysmal atrial tachycardia); History of TIA (transient ischemic attack) from Last 3 Months Immunizations Immunization Administration Dates Next Due COVID-19 (Pre-04/29) Pfizer Vaccine, mRNA, PF 11/25/2020,11/03/2020 Influenza High-Dose Trivalen t Preservative Free IM 03/15/2019,03/27/2016 Influenza Quadrivalent Adjuv anted Preservative Free IM 03/20/2023,04/27/2022,03/09/2021,03/14 Influenza Quadrivalent Prese rvative Free IM 03/18/2018,04/02/2017 Influenza Trivalent Adjuvant ed Preservative free IM 05/23/2024 Influenza, Unspecified Formulation 03/15/2019 Pneumococcal conjugate PCV13 03/27/2016 Pneumococcal conjugate PCV20 01/28/2024 Pneumococcal polysaccharide PPSV23 04/03/2018 RSV Vaccine (monovalent, adjuvanted) 01/28/2024 Tdap 01/28/2024,04/20/2020 Zoster recombinant 10/06/2020,07/18/2020 Family History Medical History Relation Comments No Known Problems Daughter 1 No Known Problems Daughter 2 Stroke Father Cancer Sibling Breast cancer Sister 1 Chronic acquired lymphedema Sister 2 No Known Problems Son Relation Status Comments Daughter 1 Alive Daughter 2 Alive Father (Age 86) Mother (Age 96) Sibling Sister 1 Sister 2 Alive Son Alive Social History Tobacco Use Types Packs/Day Years Used Date Smoking Tobacco: Never Smokeless Tobacco: Never Tobacco Cessation:Counseling Given: Not Answered Alcohol Use Standard Drinks/Week Comments Not Currently [...] Orientation Straight 11/16/2021 7: 32 PM EDT Last Filed Vital Signs Vital Sign Reading [...] Mass Index 25.72 03/25/2025 2:39 PM EDT Plan of Treatment Upcoming Encounters Date Type Department Care Team (Late st Contact Info) Description 08/03/2025 1:00 PM EST Office Visit [facility] [address] [place] [address] David Quintero PA-C [address] [place] [address] [email or web address] Health Maintenance Due Date Last Done Comments COLOGUARD 1990 FIT TEST 1990 FOBT 1990 SIGMOIDOSCOPY 1990 VIRTUAL COLONOSCOPY 1990 FOLLOW UP BONE DENSITY TESTING 09/15/2023 09/14/2021, 04/02/2017 INFLUENZA VACCINE (#1) 2025 , 03/20/2023, 04/27/2022, Additional history exists COVID-19 VACCINE ( season) 2025 03/31/2023, 04/12/2022, 07/04/2021, Additional history exists DEPRESSION SCREENING 07/30/2025 07/30/2024 COLONOSCOPY 06/28/2028 06/28/2023, 07/08, 07/19/2017 COLORECTAL CANCER SCREENING 06/28/2028 LIPID PANEL 07/20/2029 07/20/2024, 05/0 07/2022, 10/24/2021, Additional history exists Adult Td,Tdap Booster 01/27/2034 01/28/2024, 020 HEPATITIS C SCREENING Completed 04/07/2019 ZOSTER VACCINES Completed 10/06/2020, 07/18/2020 OSTEOPOROSIS SCREENING INITIAL (ONE-TIME) Completed 09/14/2021, 04/02/2017 PNEUMOCOCCAL VACCINES (50+ years) Completed 01/28/2024, 04/03/2018, 03/27/2016 RSV VACCINE Completed 01/28/2024 SMOKING STATUS SCREENING (Once After 26 Yrs) Completed 03/25/2025 HEPATITIS A VACCINES Aged Out No long er eligible based on patient's age to complete this topic HIB VACCINES Aged Out No longer eligi ble based on patient's age to complete this topic MENINGOCOCCAL VACCINES (ACWY) Aged Out No longer eligible based on patient's age to complete this topic MENINGOCOCCAL VACCINES (B) Aged Out N o longer eligible based on patient's age to complete this topic Medical Devices Not on file Procedures Procedure Name Priority Date/Time Associated Diagnosis Comments LIPID PANEL Routine 07/20/2024 8:08 AM EST Mixed hyperlipidemia HM COLONOSCOPY FOR RESULT ENTRY ONLY Routine 06/28/2023 OUTSIDE BONE DENSITY SCREENING Routine 09/14/2021 from Last 3 Months or Most Recently Relevant to Health Maintenance Results * Lipid panel (07/20/2024 8:08 AM EST) HDL 46 mg/dL [facility] Comment: Interpretation <40 mg/dL: Low HDL cholesterol (major risk factor for CHD) Greater than or equal to 60 mg/dL: High HDL cholesterol ( negative risk factor for CHD) HDL - cholesterol is affected by a number of factors, e.g. smoking, excerise, hormones, sex and age. CHOLESTEROL 163 0 - 240 mg/dL [facility] TRIGLYCERIDES 97 30 - 160 mg/dL [facility] LDL 98 50 - 129 mg/dL [facility] Comment: LDL levels in terms of risk for coronary heart disease: <100 mg/dL: Optimal 100-129 mg/dL: Near or above optimal 130-159 mg/dL: Borderline high 160-189 mg/dL: High >190 mg/dL: Very High CARDIAC RISK RATIO 3.5 3.3 - 4.4 [facility] Blood 07/20/2024 8:08 AM EST 07/20/2024 8:11 AM EST David Quintero PA-C LAB BLOOD ORDERABLES Final Re sult Performing Organization Address City/State/[facility] Co de Phone Number [facility] [address] [place], [place] [id number] * COLONOSCOPY FOR RESULT ENTRY ONLY (06/28/2023) Colonoscopy prn Historical Provider HEALTH MAINTENANCE Final Result * OUTSIDE BONE DENSITY SCREENING (09/14/2021) BONE DENSITY SCREENING - EXTERNAL normal us Historical Provider HEALTH MAINTENANCE Final Result from Last 3 Months or Most Recently Relevant to Health Maintenance Insurance MEDICARE PART A & B [facility] MEDEX SUPPLEMENT MEDICARE PART A & B [facility] MEDEX SUPPLEMENT MEDICARE PART A & B [facility] MEDEX SUPPLEMENT MEDICARE PART A & B [facility] MEDEX SUPPLEMENT MEDICARE PART A & B [facility] MEDEX SUPPLEMENT MEDICARE PART A & B [employer] SUPPLEMENT MEDICARE PART A & B [facility] MEDEX SUPPLEMENT MEDICARE PART A & B [employer] MEDEX SUPPLEMENT MEDICARE PART A & B [employer] MEDEX SUPPLEMENT Care Teams Oracle Manufacturing Consultant Relationship Specialty Start Date End Date David Quintero PA-C [address] [place] [id number] [email or web address] PCP - General Physician Product Manager 03/30/24 Larry Daley MD [address] [place] [address] Gastroenterology 04/18/20 Angelica Corea MD [address] [place] [address] [address] Neurology 05/24/20 Additional Source Comments The information contained in this document represents components of the legal health record. It is not the complete legal health record.[facility]
== END 2025-03-29 11:02 | disposition home or self-care (01) ==
LOC: HO.MAMMO 11:01
PROVIDERS: PCP Nurse Practitioner Adult Health; Referring Provider Nurse Practitioner Adult Health; Visit Provider Student in an Organized Health Care Education/Training Program
DX: Z12.31 Encounter for screening mammogram for malignant neoplasm of breast (principal)
CPT/HCPCS: 77063; 77067

== ENCOUNTER → 2025-03-29 11:30 | Outpatient (BNV) | payer MEDICARE, SELFPAY | PROVIDERS: PCP Nurse Practitioner Adult Health; Referring Provider Nurse Practitioner Adult Health; Visit Provider Radiology Body Imaging | DX: Z12.31 Encounter for screening mammogram for malignant neoplasm of breast (principal) | CPT/HCPCS: 77063; 77067 ==